=== PATIENT | female | born 1990 | race Caucasian/White ===

== ENCOUNTER 2016-09-27 14:39 | Outpatient (CLI) | payer MEDICAID | END 2016-09-27 14:40 | disposition home or self-care (01) | DX: O28.9 Unspecified abnormal findings on antenatal screening of mother (principal) ==

== ENCOUNTER 2016-11-01 04:22 | Inpatient (IN) | payer MEDICAID ==
[2016-11-01] MEDS ORDERED: fentaNYL 100 MCG/2 ML VIAL IVP PRN (05:02)
[2016-11-01] MEDS ORDERED: ONDANSETRON 4 MG/2 ML VIAL IVP PRN ×2 (05:02→10:11)
[2016-11-01] MEDS ORDERED: PENICILLIN G POTASSIUM 5,000,000 UNIT in SODIUM CHLORIDE 0.9% MINIBAG 100 ML IV ONE (05:02)
[2016-11-01] MEDS: LACTATED RINGERS 1,000 ML IV SCH ×2 (05:22→09:00)
[2016-11-01] MEDS ORDERED: SODIUM CHLORIDE FLUSH 0.9% 10 ML SYRINGE IVP ONE ×2 (08:25→18:04)
[2016-11-01] MEDS ORDERED: SUFENTA/BUPIV 0.4 MCG/0.0625% 150 ML EP ONE (09:44)
[2016-11-01] MEDS: PENICILLIN G POTASSIUM 2,500,000 UNIT in SODIUM CHLORIDE 0.9% 100ML 100 ML IV SCH ×2 (10:02→15:19)
[2016-11-01] MEDS ORDERED: SUFENTA/BUPIV 0.4 MCG/0.0625% EPIDURAL 150 ML EP PRN (10:11)
[2016-11-01] MEDS ORDERED: NALOXONE 0.4 MG/ML VIAL IVP PRN (10:11)
[2016-11-01] MEDS ORDERED: diphenhydrAMINE INJ 50 MG/ML VIAL IVP PRN (10:11)
[2016-11-01] MEDS ORDERED: ePHEDrine 50 MG/ML AMP IVP PRN (10:11)
[2016-11-01] MEDS ORDERED: METOCLOPRAMIDE 10 MG/2 ML VIAL IVP PRN (10:11)
[2016-11-01] MEDS ORDERED: LACTATED RINGERS 500 ML IV ONE (10:11)
[2016-11-01] MEDS ORDERED: NALBUPHINE 20 MG/ML AMP IVP PRN (10:11)
[2016-11-01] MEDS ORDERED: OXYTOCIN/LACTATED RINGERS 250 ML IV ONE ×2 (14:14→14:51)
[2016-11-01] MEDS ORDERED: WITCH HAZEL/GLYCERIN 1 EACH MED..PAD TOP PRN (14:51)
[2016-11-01] MEDS: ACETAMINOPHEN 500 MG TABLET PO PRN (19:31)
[2016-11-01] MEDS: DOCUSATE SODIUM 100 MG CAPSULE PO SCH (21:02)
[2016-11-01] MEDS: oxyCODONE 5 MG TABLET PO PRN (21:02)
[2016-11-02] MEDS: oxyCODONE 5 MG TABLET PO PRN ×6 (01:02→21:48)
[2016-11-02] MEDS: ACETAMINOPHEN 500 MG TABLET PO PRN ×3 (05:22→21:49)
[2016-11-02] MEDS: DOCUSATE SODIUM 100 MG CAPSULE PO SCH ×2 (10:10→21:49)
[2016-11-03] MEDS: oxyCODONE 5 MG TABLET PO PRN ×2 (03:28→07:59)
[2016-11-03] MEDS: DOCUSATE SODIUM 100 MG CAPSULE PO SCH (07:59)
[2016-11-03] MEDS: ACETAMINOPHEN 500 MG TABLET PO PRN (07:59)
== END 2016-11-03 13:25 | disposition home or self-care (01) | DRG 775 ==
PROC: 10E0XZZ Delivery of Products of Conception, External Approach (ICD-10-PCS; principal; 2016-11-01)
PROC: 10907ZC Drainage of Amniotic Fluid, Therapeutic from Products of Conception, Via Natural or Artificial Opening (ICD-10-PCS; principal; 2016-11-01)
DX: O99.824 Streptococcus B carrier state complicating childbirth (principal); Z3A.39 39 weeks gestation of pregnancy; Z37.0 Single live birth; O76 Abnormality in fetal heart rate and rhythm complicating labor and delivery; O69.81X0 Labor and delivery complicated by cord around neck, without compression, not applicable or unspecified; O99.334 Smoking (tobacco) complicating childbirth; F17.210 Nicotine dependence, cigarettes, uncomplicated

== ENCOUNTER 2021-12-17 06:03 | Emergency (ER) | payer SELFPAY ==
--- NOTE | 2021-12-17 06:22 | ED Physician Documentation ---
PD HPI CHEST PAIN - Stated complaint Stated Complaint: RACING HEART/NUMB ARMS - Chief complaint Chief Complaint: Cardiac - History obtained from History obtained from: Patient - History of Present Illness Timing - onset: How many hours ago (few hours ago) Timing - onset during: Other (she got off work 1 am and then was with friends. She states she was ofered and accepted some "coke" (she does not want her boyfriend to know this, so to be discrete with test results/etc). She soon after was feeling racing heart, tingling in hands, short of breath. Concerned it was something else.) Timing - details: Gradual onset, Still present (but is easing up on symptoms as she is coming here.) Quality: Tightness Location: Substernal Radiation: Other (feeling some tingling in both hands.). No: Neck, Back Improved by: Rest (she tried to calm her breathing) Worsened by: No: Exertion, Inspiration, Movement Associated symptoms: Nausea, Feeling faint / dizzy, General Weakness, Palpitations (she felt some skipping of heart beat intermittently), Other (tingling in hands.) Similar symptoms before: Has not had sx before (has had "panic attacks" in the past but not this type of heart symptoms.) Review of Systems Constitutional: denies: Fever Nose: denies: Rhinorrhea / runny nose, Congestion Throat: denies: Sore throat Cardiac: reports: Chest pain / pressure (she states she has had nonpatterned intermittent brief sharp anterior chest pains over the past 6 months or so. Not exertional per se, but has felt it at times while walking at work.) Respiratory: denies: Cough GI: reports: Nausea (for couple of weeks). denies: Abdominal Pain : reports: LMP (3 weeks ago), Irregular menses. denies: Dysuria, Discharge Neurologic: reports: Generalized weakness. 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.) Endocrine: denies: Weight loss, Weight gain PD PAST MEDICAL HISTORY - Past Medical History Cardiovascular: None Respiratory: None Neuro: None Endocrine/Autoimmune: None [employer]: Other - Past Surgical History Past Surgical History: No - Present Medications Home Medications: Ambulatory Orders Medication Instructions Recorded Confirmed No Known Home Medications 12/17/21 12/17/21 - Allergies Allergies/Adverse Reactions: Allergies Allergy/AdvReac Type Severity Reaction Status Date / Time ibuprofen AdvReac Unknown Unknown Verified 12/17/21 06:13 - Social History Does the pt smoke?: Yes Smoking Status: Current some day smoker Does the pt drink ETOH?: Yes Does the pt have substance abuse?: Yes - Immunizations Immunizations are current?: Yes PD ED PE NORMAL - Vitals Vital signs reviewed: Yes - General General: Alert and oriented X 3, Well developed/nourished, Other (not appearing in pain but does seem somewhat anxious. Pleasant and conversant. I ask her boyfriend to step out before talking with her, as she had asked triage nurse to tell me.) - HEENT HEENT: Pharynx benign - Neck Neck: Supple, no meningeal sign, No adenopathy - Cardiac Cardiac: RRR, No murmur - Respiratory Respiratory: Clear bilaterally, Other (no chestwall tenderness. ) - Abdomen Abdomen: Soft, Non tender, Non distended - Derm Derm: Normal color, Warm and dry - Extremities Extremities: No edema, No calf tenderness / cord - Neuro Neuro: Alert and oriented X 3, No motor deficit, Normal speech Results - Vitals Vitals: Vital Signs - 24 hr 12/17/21 12/17/21 12/17/21 06:07 06:12 07:38 Temperature 35.9 C L Heart Rate 74 79 76 Respiratory 16 15 16 Rate Blood Pressure 148/79 H 142/92 H O2 Saturation 100 100 96 Oxygen O2 Source Room air - Labs Labs: Laboratory Tests 12/17/21 12/17/21 12/17/21 06:21 06:47 06:47 WBC 10.0 RBC 4.55 Hgb 14.8 Hct 41.6 MCV 91.4 MCH 32.5 H MCHC 35.6 RDW 11.6 L Plt Count 328 MPV 9.2 Neut # (Auto) 7.9 H Lymph # (Auto) 1.6 [place] # (Auto) 0.4 Eos # (Auto) 0.0 Baso # (Auto) 0.0 Absolute Nucleated RBC 0.00 Nucleated RBC % 0.0 Sodium 133 L Potassium 3.8 Chloride 98 L Carbon Dioxide 25 Anion Gap 10.0 BUN 12 Creatinine 0.8 Estimated GFR (MDRD) 85 L Glucose 187 H Calcium 9.5 Total Bilirubin 0.8 AST 23 ALT 21 Alkaline Phosphatase 89 Troponin I High Sens Total Protein 8.1 Albumin 4.8 Globulin 3.3 Albumin/Globulin Ratio 1.5 Lipase 31 TSH Urine Color YELLOW Urine Clarity CLEAR Urine pH 6.0 Ur Specific [place] 1.010 Urine Protein NEGATIVE Urine Glucose (UA) 100 H Urine Ketones NEGATIVE Urine Occult Blood TRACE-LYSE Urine Nitrite NEGATIVE Urine Bilirubin NEGATIVE Urine Urobilinogen 0.2 (NORMAL) Ur Leukocyte Esterase NEGATIVE Ur Microscopic Review NOT INDICATED Urine Culture Comments NOT INDICATED Urine HCG, Qual NEGATIVE Urine Opiates Screen NEGATIVE Ur Oxycodone Screen NEGATIVE Urine Methadone Screen NEGATIVE Ur Propoxyphene Screen NEGATIVE Ur Barbiturates Screen NEGATIVE Ur Tricyclics Screen NEGATIVE Ur Phencyclidine Scrn NEGATIVE Ur Amphetamine Screen POSITIVE H U Methamphetamines Scrn NEGATIVE U Benzodiazepines Scrn NEGATIVE Urine Cocaine Screen POSITIVE H U Cannabinoids Screen POSITIVE H 12/17/21 12/17/21 06:47 06:47 WBC RBC Hgb Hct MCV MCH MCHC RDW Plt Count MPV Neut # (Auto) Lymph # (Auto) [place] # (Auto) Eos # (Auto) Baso # (Auto) Absolute Nucleated RBC Nucleated RBC % Sodium Potassium Chloride Carbon Dioxide Anion Gap BUN Creatinine Estimated GFR (MDRD) Glucose Calcium Total Bilirubin AST ALT Alkaline Phosphatase Troponin I High Sens 10.1 Total Protein Albumin Globulin Albumin/Globulin Ratio Lipase TSH 3.90 Urine Color Urine Clarity Urine pH Ur Specific [place] Urine Protein Urine Glucose (UA) Urine Ketones Urine Occult Blood Urine Nitrite Urine Bilirubin Urine Urobilinogen Ur Leukocyte Esterase Ur Microscopic Review Urine Culture Comments Urine HCG, Qual Urine Opiates Screen Ur Oxycodone Screen Urine Methadone Screen Ur Propoxyphene Screen Ur Barbiturates Screen Ur Tricyclics Screen Ur Phencyclidine Scrn Ur Amphetamine Screen U Methamphetamines Scrn U Benzodiazepines Scrn Urine Cocaine Screen U Cannabinoids Screen PD MEDICAL DECISION MAKING - ED course Complexity details: reviewed results (I did review her test results with her with her boyfriend not in the room. Presume more symptoms than expected if had amphetamine along with the cocaine without her knowing it. ), re-evaluated patient (patient declined benzos for symptoms, and presenting HR is not tachycardic, BP reasonable. ), considered differential (feeling fast heart rate, tingling hands, nauseated, anxious after stimulant use. But also having intermittent brief sharp pains for months. Also wonders if she might be preg nant. And concern for substances other than what inteded. Can check UTox, HCG, chem panel, TSH. ), d/w patient Departure - Departure Disposition: 01 Home, Self Care Clinical Impression: Palpitations with regular cardiac rhythm, Chest discomfort Condition: Stable Record reviewed to determine appropriate education?: Yes Instructions: ED Palpitations Comments: Your urine does not show any signs of infection and test is negative. Your electrolytes and blood count are good. No signs of heart attack/muscle injury on the ECG/labs. No signs of serious problem. Palpitations can be fairly common and those are typically not of concern. Your fast heart rate earlier was likely from excess adrenaline from your system. Rest and drink lots of fluids today.
[2021-12-17 06:39] LABS: MUDS CUTOFF CONCENTRATIONS CUTOFF CONC BELOW:
[2021-12-17 06:42] LABS: BILIRUBIN,URINE NEGATIVE (NEGATIVE); GLUCOSE, URINE (UA) 100 mg/dL (NEGATIVE); KETONES,URINE (UA) NEGATIVE (NEGATIVE); LEUKOCYTE ESTERASE, URINE NEGATIVE (NEGATIVE); NITRITE,URINE NEGATIVE (NEGATIVE); OCCULT BLOOD,URINE TRACE-LYSE (NEGATIVE); PROTEIN,URINE NEGATIVE (NEGATIVE); UROBILINOGEN,URINE 0.2 (NORMAL) E.U./dL (NORMAL)
[2021-12-17 06:43] LABS: CLARITY,URINE CLEAR (CLEAR); HCG UR QUAL NEGATIVE
[2021-12-17 06:51] LABS: AMPHETAMINE SCREEN,URINE POSITIVE (NEGATIVE); BARBITURATE SCREEN,UR NEGATIVE (NEGATIVE); BENZODIAZEPINES SCREEN, URINE NEGATIVE (NEGATIVE); COCAINE SCREEN URINE POSITIVE (NEGATIVE); METHADONE SCREEN, URINE NEGATIVE (NEGATIVE); METHAMPHETAMINES SCREEN, URINE NEGATIVE (NEGATIVE); OPIATE SCREEN, URINE NEGATIVE (NEGATIVE); OXYCODONE SCREEN, URINE NEGATIVE (NEGATIVE); PROPOXYPHENE SCREEN, URINE NEGATIVE (NEGATIVE); THC CANNABINOID SCREEN, URINE POSITIVE (NEGATIVE); TRICYCLIC ANTIDEPRESSANT,URINE NEGATIVE (NEGATIVE)
[2021-12-17 06:54] LABS: BASOPHILS % (AUTO) 0.4 %; EOSINOPHILS % (AUTO) 0.3 %; HCT - HEMATOCRIT 41.6 % (37.0-47.0); HGB - HEMOGLOBIN 14.8 g/dL (12.0-16.0); LYMPHOCYTES # (AUTO) 1.6 10^3/uL (1.5-3.5); MEAN CORPUSCULAR HEMOGLOBIN 32.5 pg (27.0-31.0); MEAN CORPUSCULAR HGB CONC 35.6 g/dL (32.0-36.0); MEAN CORPUSCULAR VOLUME 91.4 fL (81.0-99.0); MEAN PLATELET VOLUME 9.2 fL (7.9-10.8); MONOCYTES # (AUTO) 0.4 10^3/uL (0.0-1.0); MONOCYTES % (AUTO) 3.9 %; NEUTROPHILS # (AUTO) 7.9 10^3/uL (1.5-6.6); NEUTROPHILS % (AUTO) 78.9 %; PLT - PLATELET COUNT 328 10^3/uL (130-450); RED BLOOD COUNT 4.55 10^6/uL (4.20-5.40); RED CELL DISTRIBUTION WIDTH 11.6 % (12.0-15.0)
[2021-12-17 07:04] LABS: ALBUMIN 4.8 g/dL (3.2-5.5); ALBUMIN/GLOBULIN RATIO 1.5 (1.0-2.2); BILIRUBIN,TOTAL 0.8 mg/dL (0.2-1.0); CALCIUM 9.5 mg/dL (8.5-10.3); CREATININE 0.8 mg/dL (0.4-1.0); POTASSIUM 3.8 mmol/L (3.5-5.0); TOTAL PROTEIN 8.1 g/dL (6.7-8.2)
[2021-12-17] MEDS ORDERED: ONDANSETRON ODT 4 MG TABLET TL STA (07:13)
[2021-12-17 07:39] VITALS: BP 142/92
== END 2021-12-17 07:42 | disposition home or self-care (01) ==
LOC: ED 06:03
DX: R00.2 Palpitations (principal); R07.89 Other chest pain; F17.200 Nicotine dependence, unspecified, uncomplicated
CPT/HCPCS: 36415; 80053; 80306; 81003; 81025; 83690; 84443; 84484; 85025; 93005; 99282; 99284; Q0162; 81001; 87086

== ENCOUNTER 2024-04-27 08:00 | Outpatient (CLI) | payer BC ==
[2024-04-28 00:22] LABS: BACTERIAL VAGINOSIS DNA POSITIVE (NEGATIVE); CANDIDA GLABRATA DNA NEGATIVE (NEGATIVE); CANDIDA GROUP DNA NEGATIVE (NEGATIVE); CANDIDA KRUSEI DNA NEGATIVE (NEGATIVE); TRICHOMONAS VAGINALIS DNA NEGATIVE (NEGATIVE)
[2024-04-28 01:12] LABS: CHLAMYDIA TRACHOMATIS DNA NEGATIVE (NEGATIVE); NEISSERIA GONORRHOEAE DNA NEGATIVE (NEGATIVE)
== END 2024-04-27 23:59 | disposition home or self-care (01) ==
LOC: LAB.N 08:00
PROVIDERS: ATTEND Physician Assistant
DX: Z11.3 Encounter for screening for infections with a predominantly sexual mode of transmission (principal)
CPT/HCPCS: 81514; 87491; 87591; 87661; 87801

== ENCOUNTER 2024-04-28 15:10 | Outpatient (CLI) | payer BC ==
[2024-04-29 03:11] LABS: RPR Non Reactive (Non Reactive)
[2024-04-29 06:05] LABS: HSV 2 IGG TYPE SPEC <0.91 index (0.00-0.90)
[2024-04-29 07:11] LABS: HIV SCREEN 4TH GENERATION Non Reactive (Non Reactive)
[2024-04-30 03:11] LABS: HCV AB Non Reactive (Non Reactive)
== END 2024-04-28 15:11 | disposition home or self-care (01) ==
LOC: LAB.N 15:10
PROVIDERS: ATTEND Physician Assistant
DX: Z11.3 Encounter for screening for infections with a predominantly sexual mode of transmission (principal)
CPT/HCPCS: 86592; 86695; 86696; 86803; 87389